=== PATIENT | male | born 1940 ===

== ENCOUNTER 2017-07-19 11:06 | Inpatient (IN) | payer OTHER ==
[~2017-07-19] VITALS: Ht 172.7 cm; Wt 77.1 kg
[~2017-07-19 11:06] MED LIST: ACET325 PO; ASPI325 PO; ASPI81CH PO; ATOR20 PO; BETA.1TL TP; CARB200 PO; CHOL10002 PO; CLOP75 PO; CODACE30 PO; DEPO-TESTOSTERONE SQ; DIAZ5 PO; DIGO.25 PO; Depo-Testos200 MG/ML IM; EYE VITAMIN-MI1 EACH PO; FISH1000 PO; GLUC500 PO; IBUP800; IPRA.06NI; ISOMON30 PO; LEVOTHYROXINE PO; METO25ER PO; METO50ER PO; OXYACE5T PO; Percocet 5-3251 EACH PO; RXLORA1 PO; SILD50TA PO; Synthroid25 MCG PO; TERB250 PO; WARF5 PO
[2017-07-19] MEDS ORDERED: TAMS.4ER PO (11:20)
[2017-07-19 13:44] LABS: BASOPHILS ABSOLUTE AUTO 0.02 K/mm3 (0.00-0.23); BASOPHILS PERCENT AUTO 0 % (0-2); EOSINOPHILS PERCENT AUTO 1 % (0-6); Hematocrit 48.9 % (37.0-53.0); Hemoglobin 16.9 g/dL (13.5-17.5); IMMATURE GRAN ABSOLUTE AUTO 0.04 K/mm3 (0.00-0.10); IMMATURE GRAN PERCENT AUTO 1 % (0-1); LYMPHOCYTES ABSOLUTE AUTO 2.32 K/mm3 (0.84-5.20); LYMPHOCYTES PERCENT AUTO 27 % (21-46); MONOCYTES ABSOLUTE AUTO 0.75 K/mm3 (0.16-1.47); MONOCYTES PERCENT AUTO 9 % (4-13); Mean Corpuscular HGB 33.4 pg (26.0-34.0); Mean Corpuscular HGB Conc 34.6 g/dL (31.5-36.5); Mean Corpuscular Volume 97 fL (80-100); NEUTROPHILS ABSOLUTE AUTO 5.28 K/mm3 (1.96-9.15); NEUTROPHILS PERCENT AUTO 62 % (41-73); Platelet Count 165 K/mm3 (150-400); RDW Coefficient Variation 13.1 % (11.7-14.2); RDW Standard Deviation 46.8 fL (35.1-46.3); Red Blood Cell Count 5.06 M/mm3 (4.30-5.90); White Blood Cell Count 8.51 K/mm3 (4.00-11.30)
[2017-07-19 13:55] LABS: Alanine Aminotransfer (ALT/SGP 41 U/L (12-78); Albumin, Blood 4.1 g/dL (3.4-5.0); Albumin/Globulin Ratio 1.2 (0.8-1.8); Alk Phos 104 U/L (50-136); Anion Gap 8 mmol/L (6-16); Aspartate Aminotrans (AST/SGOT 35 U/L (12-37); Bilirubin, Total 1.2 mg/dL (0.1-1.0); Blood Urea Nitrogen 12 mg/dL (8-24); Bun/Creatinine Ratio 16.5 (12.0-20.0); CO2, Blood 28 mmol/L (21-32); Calcium, Blood 9.1 mg/dL (8.5-10.1); Chloride, Blood 102 mmol/L (98-108); Creatinine, Blood 0.73 mg/dL (0.60-1.20); Globulin, Blood 3.3 g/dL (2.2-4.0); Glomerular Filtration Rate >60 (60-); Glucose, Blood 96 mg/dL (70-99); Potassium, Blood 3.6 mmol/L (3.5-5.5); Sodium, Blood 138 mmol/L (136-145); Total Protein, Blood 7.4 g/dL (6.4-8.2)
[2017-07-19 13:56] LABS: Troponin I <0.015 ng/mL (0.000-0.040)
[2017-07-20 05:24] LABS: BASOPHILS ABSOLUTE AUTO 0.01 K/mm3 (0.00-0.23); BASOPHILS PERCENT AUTO 0 % (0-2); EOSINOPHILS ABSOLUTE AUTO 0.01 K/mm3 (0.00-0.68); EOSINOPHILS PERCENT AUTO 0 % (0-6); Hematocrit 41.6 % (37.0-53.0); Hemoglobin 14.3 g/dL (13.5-17.5); IMMATURE GRAN ABSOLUTE AUTO 0.03 K/mm3 (0.00-0.10); IMMATURE GRAN PERCENT AUTO 0 % (0-1); LYMPHOCYTES ABSOLUTE AUTO 0.99 K/mm3 (0.84-5.20); LYMPHOCYTES PERCENT AUTO 11 % (21-46); MONOCYTES ABSOLUTE AUTO 0.79 K/mm3 (0.16-1.47); MONOCYTES PERCENT AUTO 9 % (4-13); Mean Corpuscular HGB 33.4 pg (26.0-34.0); Mean Corpuscular HGB Conc 34.4 g/dL (31.5-36.5); Mean Corpuscular Volume 97 fL (80-100); Mean Platelet Volume 9.8 fL (9.1-12.4); NEUTROPHILS PERCENT AUTO 80 % (41-73); Platelet Count 141 K/mm3 (150-400); RDW Coefficient Variation 12.9 % (11.7-14.2); Red Blood Cell Count 4.28 M/mm3 (4.30-5.90); White Blood Cell Count 9.23 K/mm3 (4.00-11.30)
[2017-07-20 05:35] LABS: International Normalized Ratio 2.8; Prothrombin Time Results 30.1 Sec (9.7-11.5)
[2017-07-20 06:04] LABS: Anion Gap 7 mmol/L (6-16); Blood Urea Nitrogen 13 mg/dL (8-24); Bun/Creatinine Ratio 17.9 (12.0-20.0); CO2, Blood 29 mmol/L (21-32); Calcium, Blood 8.6 mg/dL (8.5-10.1); Chloride, Blood 103 mmol/L (98-108); Creatinine, Blood 0.73 mg/dL (0.60-1.20); Glomerular Filtration Rate >60 (60-); Glucose, Blood 111 mg/dL (70-99); Potassium, Blood 4.3 mmol/L (3.5-5.5); Sodium, Blood 139 mmol/L (136-145)
[2017-07-20] MEDS ORDERED: OXYC5 PO (14:20)
[2017-10-17] MEDS ORDERED: ISOMON20 PO (02:19)
[2017-10-17] MEDS ORDERED: METO50ER PO (02:22)
[2017-10-17] MEDS ORDERED: LOSA25 PO (02:22)
[2017-10-17] MEDS ORDERED: SPIR25 PO (02:23)
[2017-10-17] MEDS ORDERED: TAMS.4ER PO (02:23)
[2017-10-17] MEDS ORDERED: TRAM50 PO (02:24)
[2017-10-17] MEDS ORDERED: TRAZ100 PO (02:24)
[2017-10-17] MEDS ORDERED: WARF2.5 PO (02:24)
[2017-10-17] MEDS ORDERED: Acetaminophen-1 EAC1 PO (02:25)
[2017-10-17] MEDS ORDERED: CLOP75 PO (02:26)
[2017-10-17] MEDS ORDERED: LANOXIN125 MCG PO (02:26)
[2017-10-17] MEDS ORDERED: ATOR80 PO (02:26)
[2017-10-19] MEDS ORDERED: WARF5 PO (09:24)
[2017-10-19] MEDS ORDERED: ACET325 PO (11:08)
[2017-10-19] MEDS ORDERED: FURO40 PO (11:09)
[2017-10-19] MEDS ORDERED: SPIR25 PO (11:09)
== END 2017-07-20 15:01 | disposition home health service (06) | DRG 536 ==
LOC: ER 11:06 → SURS 13:33
PROVIDERS: Internal Medicine
DX: S72.24XA Nondisplaced subtrochanteric fracture of right femur, initial encounter for closed fracture (principal); I48.2 Chronic atrial fibrillation; J44.9 Chronic obstructive pulmonary disease, unspecified; M97.01XA Periprosthetic fracture around internal prosthetic right hip joint, initial encounter; V09.00XA Pedestrian injured in nontraffic accident involving unspecified motor vehicles, initial encounter; I25.10 Atherosclerotic heart disease of native coronary artery without angina pectoris; I10 Essential (primary) hypertension; E78.5 Hyperlipidemia, unspecified; Z66 Do not resuscitate; Z95.5 Presence of coronary angioplasty implant and graft; Z96.643 Presence of artificial hip joint, bilateral; Z96.652 Presence of left artificial knee joint; Z86.010 Personal history of colon polyps; Z87.891 Personal history of nicotine dependence; Z79.899 Other long term (current) drug therapy; Z79.01 Long term (current) use of anticoagulants
CPT/HCPCS: 36415; 73502; 80048; 80053; 84484; 85025; 85610; 93005; 93010; 96374; 96375; 96376; 97110; 97116; 97162; 99285; G8978; G8979; J1170; J2405; J7030

== ENCOUNTER 2017-10-14 21:55 | Inpatient (IN) | payer OTHER ==
[~2017-10-14] VITALS: Ht 172.7 cm; Wt 79.2 kg
[~2017-10-14 21:55] MED LIST changes: +OXYC5 PO; +TAMS.4ER PO
[2017-10-14] MEDS ORDERED: TRAM50 PO (22:17)
[2017-10-14] MEDS ORDERED: TYLECOD3 PO (22:17)
[2017-10-14] MEDS ORDERED: TRAZ100 PO (22:18)
[2017-10-14 22:31] LABS: BASOPHILS ABSOLUTE AUTO 0.02 K/mm3 (0.00-0.23); BASOPHILS PERCENT AUTO 0 % (0-2); EOSINOPHILS ABSOLUTE AUTO 0.04 K/mm3 (0.00-0.68); EOSINOPHILS PERCENT AUTO 0 % (0-6); Hematocrit 41.8 % (37.0-53.0); Hemoglobin 14.1 g/dL (13.5-17.5); IMMATURE GRAN ABSOLUTE AUTO 0.04 K/mm3 (0.00-0.10); IMMATURE GRAN PERCENT AUTO 0 % (0-1); LYMPHOCYTES ABSOLUTE AUTO 2.11 K/mm3 (0.84-5.20); LYMPHOCYTES PERCENT AUTO 22 % (21-46); MONOCYTES ABSOLUTE AUTO 0.88 K/mm3 (0.16-1.47); MONOCYTES PERCENT AUTO 9 % (4-13); Mean Corpuscular HGB 33.3 pg (26.0-34.0); Mean Corpuscular HGB Conc 33.7 g/dL (31.5-36.5); Mean Corpuscular Volume 99 fL (80-100); Mean Platelet Volume 10.2 fL (9.1-12.4); NEUTROPHILS ABSOLUTE AUTO 6.46 K/mm3 (1.96-9.15); NEUTROPHILS PERCENT AUTO 68 % (41-73); Platelet Count 118 K/mm3 (150-400); RDW Coefficient Variation 13.3 % (11.7-14.2); RDW Standard Deviation 48.4 fL (35.1-46.3); Red Blood Cell Count 4.23 M/mm3 (4.30-5.90); White Blood Cell Count 9.55 K/mm3 (4.00-11.30)
[2017-10-14 22:44] LABS: International Normalized Ratio 2.98; Prothrombin Time Results 32.1 Sec (9.7-11.5)
[2017-10-14 22:46] LABS: Alanine Aminotransfer (ALT/SGP 40 U/L (12-78); Albumin, Blood 3.7 g/dL (3.4-5.0); Albumin/Globulin Ratio 1.2 (0.8-1.8); Alk Phos 117 U/L (50-136); Anion Gap 13 mmol/L (6-16); Aspartate Aminotrans (AST/SGOT 41 U/L (12-37); Bilirubin, Total 0.7 mg/dL (0.1-1.0); Blood Urea Nitrogen 14 mg/dL (8-24); Bun/Creatinine Ratio 14.6 (12.0-20.0); CO2, Blood 24 mmol/L (21-32); Calcium, Blood 8.8 mg/dL (8.5-10.1); Chloride, Blood 100 mmol/L (98-108); Creatinine, Blood 0.96 mg/dL (0.60-1.20); Glomerular Filtration Rate >60 (60-); Glucose, Blood 128 mg/dL (70-99); Potassium, Blood 3.9 mmol/L (3.5-5.5); Sodium, Blood 137 mmol/L (136-145); Total Protein, Blood 6.7 g/dL (6.4-8.2)
[2017-10-14 22:55] LABS: Digoxin (Lanoxin) 0.21 ug/mL (0.80-2.00)
[2017-10-15 06:33] LABS: Creatine Kinase MB 18.9 ng/mL (0.0-3.6); Creatine Kinase MB Index 10.3 (0.0-4.0)
[2017-10-15 06:42] LABS: Troponin I 2.8 ng/mL (0.000-0.040)
[2017-10-15 10:15] LABS: BASOPHILS ABSOLUTE AUTO 0.02 K/mm3 (0.00-0.23); BASOPHILS PERCENT AUTO 0 % (0-2); EOSINOPHILS ABSOLUTE AUTO 0.02 K/mm3 (0.00-0.68); EOSINOPHILS PERCENT AUTO 0 % (0-6); Hematocrit 42.8 % (37.0-53.0); Hemoglobin 14.6 g/dL (13.5-17.5); IMMATURE GRAN ABSOLUTE AUTO 0.03 K/mm3 (0.00-0.10); IMMATURE GRAN PERCENT AUTO 0 % (0-1); LYMPHOCYTES ABSOLUTE AUTO 1.08 K/mm3 (0.84-5.20); LYMPHOCYTES PERCENT AUTO 12 % (21-46); MONOCYTES ABSOLUTE AUTO 0.82 K/mm3 (0.16-1.47); MONOCYTES PERCENT AUTO 9 % (4-13); Mean Corpuscular HGB 33.2 pg (26.0-34.0); Mean Corpuscular HGB Conc 34.1 g/dL (31.5-36.5); Mean Corpuscular Volume 97 fL (80-100); Mean Platelet Volume 10.2 fL (9.1-12.4); NEUTROPHILS ABSOLUTE AUTO 6.91 K/mm3 (1.96-9.15); NEUTROPHILS PERCENT AUTO 78 % (41-73); Platelet Count 120 K/mm3 (150-400); RDW Coefficient Variation 13.4 % (11.7-14.2); White Blood Cell Count 8.88 K/mm3 (4.00-11.30)
[2017-10-15 10:24] LABS: International Normalized Ratio 3.21; Prothrombin Time Results 34.6 Sec (9.7-11.5)
[2017-10-15 10:42] LABS: Alanine Aminotransfer (ALT/SGP 39 U/L (12-78); Albumin, Blood 3.8 g/dL (3.4-5.0); Albumin/Globulin Ratio 1.2 (0.8-1.8); Alk Phos 118 U/L (50-136); Anion Gap 9 mmol/L (6-16); Aspartate Aminotrans (AST/SGOT 49 U/L (12-37); Blood Urea Nitrogen 16 mg/dL (8-24); Bun/Creatinine Ratio 21.5 (12.0-20.0); CO2, Blood 27 mmol/L (21-32); Chloride, Blood 99 mmol/L (98-108); Creatinine, Blood 0.74 mg/dL (0.60-1.20); Globulin, Blood 3.2 g/dL (2.2-4.0); Glomerular Filtration Rate >60 (60-); Glucose, Blood 112 mg/dL (70-99); Potassium, Blood 4.2 mmol/L (3.5-5.5); Sodium, Blood 135 mmol/L (136-145)
[2017-10-15 15:04] LABS: International Normalized Ratio 2.08
[2017-10-15 15:05] LABS: Creatine Kinase MB 19.5 ng/mL (0.0-3.6); Creatine Kinase MB Index 9.4 (0.0-4.0)
[2017-10-15 15:11] LABS: Prothrombin Time Results 22.1 Sec (9.7-11.5)
[2017-10-15 15:14] LABS: Troponin I 3.31 ng/mL (0.000-0.040)
[2017-10-16] MEDS ORDERED: ASPI81CH PO (13:45)
[2017-10-16] MEDS ORDERED: LANOXIN125 MCG PO (13:48)
[2017-10-16] MEDS ORDERED: LOSA25 PO (13:48)
[2017-10-16] MEDS ORDERED: SPIR25 PO (13:49)
[2017-10-16] MEDS ORDERED: ISOMON20 PO (13:50)
[2017-10-16] MEDS ORDERED: CLOP75 PO (14:07)
== END 2017-10-16 15:37 | disposition home or self-care (01) | DRG 282 ==
LOC: ER 21:55 → PCU 21:56 → ER 21:56 → PCU 10-15 00:50
PROVIDERS: Emergency Medicine; Internal Medicine; Internal Medicine Cardiovascular Disease
PROC: 4A023N7 Measurement of Cardiac Sampling and Pressure, Left Heart, Percutaneous Approach (ICD-10-PCS; principal; 2017-10-15)
PROC: B2111ZZ Fluoroscopy of Multiple Coronary Arteries using Low Osmolar Contrast (ICD-10-PCS; 2017-10-15)
PROC: 30233K1 Transfusion of Nonautologous Frozen Plasma into Peripheral Vein, Percutaneous Approach (ICD-10-PCS; 2017-10-15)
DX: I21.4 Non-ST elevation (NSTEMI) myocardial infarction (principal); I25.5 Ischemic cardiomyopathy; I25.2 Old myocardial infarction; I48.2 Chronic atrial fibrillation; I25.10 Atherosclerotic heart disease of native coronary artery without angina pectoris; E78.5 Hyperlipidemia, unspecified; I10 Essential (primary) hypertension; J44.9 Chronic obstructive pulmonary disease, unspecified; E11.9 Type 2 diabetes mellitus without complications; R79.1 Abnormal coagulation profile; I35.2 Nonrheumatic aortic (valve) stenosis with insufficiency
CPT/HCPCS: 36415; 36430; 71046; 80053; 80162; 82550; 82553; 83880; 84484; 85025; 85610; 85730; 86850; 86900; 86901; 93005; 93010; 93306; 93458; 99152; 99153; 99285; C1769; C1894; J1644; J2250; J3010; J7030; P9059; Q9967

== ENCOUNTER 2018-02-21 12:25 | Inpatient (IN) | payer OTHER ==
[~2018-02-21] VITALS: Ht 172.7 cm; Wt 72.5 kg
[~2018-02-21 12:25] MED LIST changes: -LORA.5 PO; -POTA10T PO
[2018-02-21] MEDS ORDERED: LORA.5 PO (13:40)
[2018-02-21 20:52] LABS: Percent Saturation 18.8 % (20.0-50.0)
[2018-02-22 02:12] LABS: BASOPHILS ABSOLUTE AUTO 0.01 K/mm3 (0.00-0.23); BASOPHILS PERCENT AUTO 0 % (0-2); EOSINOPHILS ABSOLUTE AUTO 0.13 K/mm3 (0.00-0.68); EOSINOPHILS PERCENT AUTO 2 % (0-6); Hematocrit 33.2 % (37.0-53.0); Hemoglobin 11.6 g/dL (13.5-17.5); IMMATURE GRAN ABSOLUTE AUTO 0.05 K/mm3 (0.00-0.10); IMMATURE GRAN PERCENT AUTO 1 % (0-1); LYMPHOCYTES ABSOLUTE AUTO 1.76 K/mm3 (0.84-5.20); LYMPHOCYTES PERCENT AUTO 24 % (21-46); MONOCYTES ABSOLUTE AUTO 0.65 K/mm3 (0.16-1.47); MONOCYTES PERCENT AUTO 9 % (4-13); Mean Corpuscular HGB 33.8 pg (26.0-34.0); Mean Corpuscular HGB Conc 34.9 g/dL (31.5-36.5); Mean Platelet Volume 9.6 fL (9.1-12.4); NEUTROPHILS PERCENT AUTO 64 % (41-73); Platelet Count 188 K/mm3 (150-400); RDW Coefficient Variation 12.3 % (11.7-14.2); RDW Standard Deviation 43.6 fL (35.1-46.3); Red Blood Cell Count 3.43 M/mm3 (4.30-5.90)
[2018-02-22 02:16] LABS: Mean Corpuscular Volume 97 fL (80-100)
[2018-02-22 02:26] LABS: International Normalized Ratio 1.46; Prothrombin Time Results 14.7 Sec (9.7-11.5)
[2018-02-22 02:36] LABS: Alanine Aminotransfer (ALT/SGP 61 U/L (12-78); Albumin, Blood 3.4 g/dL (3.4-5.0); Albumin/Globulin Ratio 1.1 (0.8-1.8); Alk Phos 121 U/L (50-136); Anion Gap 8 mmol/L (6-16); Aspartate Aminotrans (AST/SGOT 60 U/L (12-37); Bilirubin, Total 1.2 mg/dL (0.1-1.0); Blood Urea Nitrogen 23 mg/dL (8-24); Bun/Creatinine Ratio 25.4 (12.0-20.0); CO2, Blood 29 mmol/L (21-32); Calcium, Blood 8.6 mg/dL (8.5-10.1); Chloride, Blood 93 mmol/L (98-108); Creatinine, Blood 0.91 mg/dL (0.60-1.20); Globulin, Blood 3.1 g/dL (2.2-4.0); Glomerular Filtration Rate >60 (60-); Glucose, Blood 90 mg/dL (70-99); Magnesium, Blood 2.4 mg/dL (1.6-2.4); Phosphorus, Blood 3.2 mg/dL (2.5-4.9); Potassium, Blood 3.8 mmol/L (3.5-5.5); Sodium, Blood 130 mmol/L (136-145); Total Protein, Blood 6.5 g/dL (6.4-8.2)
[2018-02-23 05:00] LABS: BASOPHILS ABSOLUTE AUTO 0.02 K/mm3 (0.00-0.23); BASOPHILS PERCENT AUTO 0 % (0-2); EOSINOPHILS ABSOLUTE AUTO 0.14 K/mm3 (0.00-0.68); EOSINOPHILS PERCENT AUTO 2 % (0-6); Hematocrit 31.2 % (37.0-53.0); Hemoglobin 10.5 g/dL (13.5-17.5); IMMATURE GRAN ABSOLUTE AUTO 0.05 K/mm3 (0.00-0.10); IMMATURE GRAN PERCENT AUTO 1 % (0-1); LYMPHOCYTES ABSOLUTE AUTO 1.25 K/mm3 (0.84-5.20); LYMPHOCYTES PERCENT AUTO 19 % (21-46); MONOCYTES ABSOLUTE AUTO 0.64 K/mm3 (0.16-1.47); MONOCYTES PERCENT AUTO 10 % (4-13); Mean Corpuscular HGB 32.6 pg (26.0-34.0); Mean Corpuscular HGB Conc 33.7 g/dL (31.5-36.5); Mean Corpuscular Volume 97 fL (80-100); Mean Platelet Volume 9.7 fL (9.1-12.4); NEUTROPHILS ABSOLUTE AUTO 4.48 K/mm3 (1.96-9.15); NEUTROPHILS PERCENT AUTO 68 % (41-73); Platelet Count 189 K/mm3 (150-400); RDW Coefficient Variation 12.6 % (11.7-14.2); RDW Standard Deviation 44.7 fL (35.1-46.3); Red Blood Cell Count 3.22 M/mm3 (4.30-5.90); White Blood Cell Count 6.58 K/mm3 (4.00-11.30)
[2018-02-23 05:14] LABS: International Normalized Ratio 2.03; Prothrombin Time Results 20.1 Sec (9.7-11.5)
[2018-02-23 05:22] LABS: Anion Gap 7 mmol/L (6-16); Blood Urea Nitrogen 21 mg/dL (8-24); Bun/Creatinine Ratio 23.1 (12.0-20.0); CO2, Blood 32 mmol/L (21-32); Calcium, Blood 8.2 mg/dL (8.5-10.1); Chloride, Blood 97 mmol/L (98-108); Creatinine, Blood 0.91 mg/dL (0.60-1.20); Glomerular Filtration Rate >60 (60-); Glucose, Blood 84 mg/dL (70-99); Potassium, Blood 3.6 mmol/L (3.5-5.5); Sodium, Blood 136 mmol/L (136-145)
[2018-02-23] MEDS ORDERED: SPIR25 PO (09:48)
[2018-02-23] MEDS ORDERED: POTA10T PO (09:49)
== END 2018-02-23 11:45 | disposition home or self-care (01) | DRG 292 ==
LOC: ER 12:25 → MEDS 12:26 → ENPENDDIS 02-23 09:37 → MEDS 02-23 11:45
PROVIDERS: Hospitalist; Pharmacist
DX: I50.23 Acute on chronic systolic (congestive) heart failure (principal); E87.1 Hypo-osmolality and hyponatremia; I48.2 Chronic atrial fibrillation; I34.0 Nonrheumatic mitral (valve) insufficiency; I25.10 Atherosclerotic heart disease of native coronary artery without angina pectoris; D64.9 Anemia, unspecified; M51.36 Other intervertebral disc degeneration, lumbar region; E78.5 Hyperlipidemia, unspecified; M19.90 Unspecified osteoarthritis, unspecified site; I25.2 Old myocardial infarction; Z95.5 Presence of coronary angioplasty implant and graft; Z88.8 Allergy status to other drugs, medicaments and biological substances; Z79.01 Long term (current) use of anticoagulants; Z79.02 Long term (current) use of antithrombotics/antiplatelets; Z79.899 Other long term (current) drug therapy; Z87.891 Personal history of nicotine dependence
CPT/HCPCS: 36415; 80048; 80053; 82728; 83540; 83550; 83735; 83880; 84100; 84484; 85025; 85610; 93005; 93010; 96374; 96375; 97161; 97165; 97535; 99285-25; G8978; G8979; G8980; G8987; G8988; G8989; J1940; J2405

== ENCOUNTER → 2018-02-21 | Outpatient (CLI) | payer OTHER ==
[~2018-02-21] MED LIST changes: +ATOR80 PO; +Acetaminophen-1 EAC1 PO; +FURO40 PO; +ISOMON20 PO; +LANOXIN125 MCG PO; +LORA.5 PO; +LOSA25 PO; +POTA10T PO; +SPIR25 PO; +TRAM50 PO; +TRAZ100 PO; +TYLECOD3 PO; +WARF2.5 PO
[2018-02-21 11:15] LABS: BASOPHILS ABSOLUTE AUTO 0.01 K/mm3 (0.00-0.23); BASOPHILS PERCENT AUTO 0 % (0-2); EOSINOPHILS ABSOLUTE AUTO 0.03 K/mm3 (0.00-0.68); EOSINOPHILS PERCENT AUTO 0 % (0-6); Hematocrit 31.1 % (37.0-53.0); Hemoglobin 11.3 g/dL (13.5-17.5); IMMATURE GRAN ABSOLUTE AUTO 0.06 K/mm3 (0.00-0.10); IMMATURE GRAN PERCENT AUTO 1 % (0-1); LYMPHOCYTES ABSOLUTE AUTO 0.76 K/mm3 (0.84-5.20); LYMPHOCYTES PERCENT AUTO 8 % (21-46); MONOCYTES ABSOLUTE AUTO 0.89 K/mm3 (0.16-1.47); MONOCYTES PERCENT AUTO 9 % (4-13); Mean Corpuscular HGB 34.2 pg (26.0-34.0); Mean Corpuscular HGB Conc 36.3 g/dL (31.5-36.5); Mean Corpuscular Volume 94 fL (80-100); Mean Platelet Volume 10.1 fL (9.1-12.4); NEUTROPHILS ABSOLUTE AUTO 8.13 K/mm3 (1.96-9.15); NEUTROPHILS PERCENT AUTO 82 % (41-73); Platelet Count 195 K/mm3 (150-400); RDW Coefficient Variation 12.2 % (11.7-14.2); RDW Standard Deviation 42.2 fL (35.1-46.3); White Blood Cell Count 9.88 K/mm3 (4.00-11.30)
[2018-02-21 11:40] LABS: Anion Gap 8 mmol/L (6-16); Blood Urea Nitrogen 23 mg/dL (8-24); Bun/Creatinine Ratio 23.2 (12.0-20.0); CO2, Blood 28 mmol/L (21-32); Calcium, Blood 9.1 mg/dL (8.5-10.1); Chloride, Blood 90 mmol/L (98-108); Creatinine, Blood 0.99 mg/dL (0.60-1.20); Glomerular Filtration Rate >60 (60-); Glucose, Blood 123 mg/dL (70-99); Potassium, Blood 4.2 mmol/L (3.5-5.5); Sodium, Blood 126 mmol/L (136-145)
[2018-02-21 11:41] LABS: Troponin I 1.532 ng/mL (0.000-0.040)
== END | disposition home or self-care (01) ==
LOC: LAB EV 11:10 → LAB SHORT 11:10
PROVIDERS: Family Medicine
DX: I48.91 Unspecified atrial fibrillation (principal)
CPT/HCPCS: 80048; 83880; 84484; 85025

== ENCOUNTER 2019-10-20 14:07 | Inpatient (IN) | payer OTHER ==
[~2019-10-20] VITALS: Ht 172.7 cm; Wt 70.0 kg
[~2019-10-20 14:07] MED LIST changes: -ATOR80 PO; +LORA.5 PO; +POTA10T PO
[2019-10-20 15:52] LABS: BASOPHILS ABSOLUTE AUTO 0.03 K/mm3 (0.00-0.23); BASOPHILS PERCENT AUTO 0 % (0-2); EOSINOPHILS ABSOLUTE AUTO 0.09 K/mm3 (0.00-0.68); EOSINOPHILS PERCENT AUTO 1 % (0-6); Hematocrit 40.3 % (37.0-53.0); Hemoglobin 13.6 g/dL (13.5-17.5); IMMATURE GRAN ABSOLUTE AUTO 0.03 K/mm3 (0.00-0.10); IMMATURE GRAN PERCENT AUTO 0 % (0-1); LYMPHOCYTES ABSOLUTE AUTO 1.49 K/mm3 (0.84-5.20); LYMPHOCYTES PERCENT AUTO 19 % (21-46); MONOCYTES ABSOLUTE AUTO 0.78 K/mm3 (0.16-1.47); MONOCYTES PERCENT AUTO 10 % (4-13); Mean Corpuscular HGB 33.2 pg (26.0-34.0); Mean Corpuscular HGB Conc 33.7 g/dL (31.5-36.5); Mean Corpuscular Volume 98 fL (80-100); Mean Platelet Volume 10.3 fL (9.1-12.4); NEUTROPHILS PERCENT AUTO 69 % (41-73); Platelet Count 135 K/mm3 (150-400); RDW Coefficient Variation 13.7 % (11.7-14.2); RDW Standard Deviation 49.7 fL (35.1-46.3); White Blood Cell Count 7.72 K/mm3 (4.00-11.30)
[2019-10-20 16:13] LABS: Alanine Aminotransfer (ALT/SGP 39 U/L (12-78); Albumin, Blood 3.9 g/dL (3.4-5.0); Albumin/Globulin Ratio 1.2 (0.8-1.8); Alk Phos 162 U/L (50-136); Anion Gap 7 mmol/L (6-16); Aspartate Aminotrans (AST/SGOT 46 U/L (12-37); Bilirubin, Total 1.2 mg/dL (0.1-1.0); Blood Urea Nitrogen 24 mg/dL (8-24); Bun/Creatinine Ratio 28.5 (12.0-20.0); CO2, Blood 30 mmol/L (21-32); Calcium, Blood 9.2 mg/dL (8.5-10.1); Chloride, Blood 98 mmol/L (98-108); Creatinine, Blood 0.84 mg/dL (0.60-1.20); Globulin, Blood 3.3 g/dL (2.2-4.0); Glomerular Filtration Rate >60 (60-); Glucose, Blood 69 mg/dL (70-99); Potassium, Blood 3.6 mmol/L (3.5-5.5); Sodium, Blood 135 mmol/L (136-145); Total Protein, Blood 7.2 g/dL (6.4-8.2); Troponin I 0.072 ng/mL (0.000-0.040)
[2019-10-20] MEDS ORDERED: TORSE20 PO (17:14)
[2019-10-20] MEDS ORDERED: GABA300 PO (17:16)
[2019-10-20] MEDS ORDERED: ELIQUIS5 MG PO (17:16)
[2019-10-20] MEDS ORDERED: DIGOX125 MC1 PO (18:51)
--- NOTE | 2019-10-20 22:30 | NUR ---
PCU ADMIT PT BROUGHT TO PCU-06 BY NICHELLEALEXSANDRA FROM ER @ APPROX 2145. PT A&O X4, ABLE TO STAND AND INDEPENDENTLY AMBULATE FROM [facility] TO PCU BED. PT HAS PERSONAL CANE W/ HIM THAT HE REPORTS OCCASSIONALLY USING. PT VSS. MONITOR SHOWS AFIB W/ BBB, HR 90's. LUNG SOUNDS CLEAR W/ SPO2 > 92% ON RA. PT REPORTS SOB W/ ACTIVITY & LAYING DOWN. RLE W/ PITTING EDEMEA FROM R FOOT UP TO THIGH. LLE W/ +2 EDEMA. PT REPORTS TAKING DIURETIC AT HOME W/ LITTLE HELP. PT POTASSIUM LEVEL ON LOW SIDE OF NORMAL. MD ORDER FOR PO K SUPPLEMENTATION W/ PT REFUSING, STATING "I'VE BEEN OVER THIS BEFORE. I DO NOT TAKE POTASSIUM. I EAT BANANAS, AND I DO NOT TAKE POTASSIUM." PT EDUCATED ON POTASSIUM NEEDS WHILE ON DIURETICS AND POTENTIAL FURTHER DECLINE IN K LEVEL. PT INFORMS THAT HE IS AWARE AND DECLINES POTASSIUM SUPPLEMENTATION OR FURTHER EDUCATION AT THIS TIME. PT ALSO DECLINING BANANA. PT VERY PARTICULAR W/ NEEDS & CARE & IS VERY IRRITABLE W/ LEGAL ADMINISTRATOR, HOSPITAL GOWN, UNCOMFORTABLE BED, PILLS BEING TOO BIG OR TOO SLICK OR TOO STICKY OR WATER TOO COLD. APPLESAUCE AND ROOM TEMP WATER PROVIDED TO PT FOR MEDICATIONS FOR PT PREFERENCE. WILL CONTINUE TO MONITOR AND PROVIDE CARE.
[2019-10-21 04:20] LABS: Hemoglobin 11.8 g/dL (13.5-17.5)
[2019-10-21 04:41] LABS: Anion Gap 6 mmol/L (6-16); Blood Urea Nitrogen 20 mg/dL (8-24); Bun/Creatinine Ratio 24.3 (12.0-20.0); CO2, Blood 33 mmol/L (21-32); Calcium, Blood 8.8 mg/dL (8.5-10.1); Chloride, Blood 100 mmol/L (98-108); Creatinine, Blood 0.82 mg/dL (0.60-1.20); Glomerular Filtration Rate >60 (60-); Glucose, Blood 96 mg/dL (70-99); Magnesium, Blood 2.2 mg/dL (1.6-2.4); Potassium, Blood 3.3 mmol/L (3.5-5.5); Sodium, Blood 139 mmol/L (136-145); Troponin I 0.079 ng/mL (0.000-0.040)
[2019-10-21 04:48] LABS: Digoxin (Lanoxin) 0.57 ug/mL (0.80-2.00)
--- NOTE | 2019-10-21 06:25 | NUR ---
SHIFT SUMMARY PT CONTINUES TO BE A&O X4. VSS. MONITOR SHOWING AFIB W/ BBB, HR 60's-90's. LUNG SOUNDS CLEAR W/ SPO2 > 92% ON RA. BLE EDEMA NOTED. PT SLEEPING T/O MAJORITY OF SHIFT. WILL CONTINUE TO MONITOR AND PROVIDE CARE UNTIL REPORT OFF TO DAY SHIFT RN.
--- NOTE | 2019-10-21 16:35 | NUR ---
SHIFT SUMMARY PT REPORTS FEELING BETTER TODAY. BLE WITH PITTING EDEMA AND ARE ACTIVELY WEEPING. KNEE HIGH GITA HOSE IN PLACE. PT REPORTS EDEMA IMPROVED SINCE YESTERDAY. PT DENIES CP AND DENIES SOB. HAS BEEN INDEP IN ROOM. PLAN IS TO CONTINUE DIURESING, REPEAT LABS IN AM, REPEAT ECHOCARDIOGRAM, AND STRICT I/Os. PT USES CALL LIGHT APPROPRIATELY.
--- NOTE | 2019-10-21 17:17 | NUR ---
NOTIFED DR. WEISS OF LOW BP AND DIZZYNESS. HOLD LASIX DOSE IF SBP <100. DR. MOROCHO VERBALIZED TO HAVE PT REST IN BED UNTIL SYMPTOMS SUBSIDE.
[2019-10-22 03:47] LABS: BASOPHILS ABSOLUTE AUTO 0.02 K/mm3 (0.00-0.23); BASOPHILS PERCENT AUTO 0 % (0-2); EOSINOPHILS ABSOLUTE AUTO 0.04 K/mm3 (0.00-0.68); EOSINOPHILS PERCENT AUTO 1 % (0-6); Hematocrit 37.4 % (37.0-53.0); Hemoglobin 12.2 g/dL (13.5-17.5); IMMATURE GRAN ABSOLUTE AUTO 0.02 K/mm3 (0.00-0.10); IMMATURE GRAN PERCENT AUTO 0 % (0-1); LYMPHOCYTES ABSOLUTE AUTO 1.46 K/mm3 (0.84-5.20); LYMPHOCYTES PERCENT AUTO 23 % (21-46); MONOCYTES ABSOLUTE AUTO 0.65 K/mm3 (0.16-1.47); MONOCYTES PERCENT AUTO 10 % (4-13); Mean Corpuscular HGB 32.4 pg (26.0-34.0); Mean Corpuscular HGB Conc 32.6 g/dL (31.5-36.5); Mean Corpuscular Volume 100 fL (80-100); Mean Platelet Volume 10.4 fL (9.1-12.4); NEUTROPHILS ABSOLUTE AUTO 4.29 K/mm3 (1.96-9.15); NEUTROPHILS PERCENT AUTO 66 % (41-73); Platelet Count 122 K/mm3 (150-400); RDW Coefficient Variation 13.8 % (11.7-14.2); RDW Standard Deviation 50.4 fL (35.1-46.3); Red Blood Cell Count 3.76 M/mm3 (4.30-5.90); White Blood Cell Count 6.48 K/mm3 (4.00-11.30)
[2019-10-22 04:09] LABS: Alanine Aminotransfer (ALT/SGP 31 U/L (12-78); Albumin, Blood 3.5 g/dL (3.4-5.0); Albumin/Globulin Ratio 1.2 (0.8-1.8); Alk Phos 142 U/L (50-136); Anion Gap 5 mmol/L (6-16); Aspartate Aminotrans (AST/SGOT 48 U/L (12-37); Bilirubin, Total 1.5 mg/dL (0.1-1.0); Blood Urea Nitrogen 22 mg/dL (8-24); Bun/Creatinine Ratio 24.6 (12.0-20.0); CO2, Blood 33 mmol/L (21-32); Chloride, Blood 98 mmol/L (98-108); Glomerular Filtration Rate >60 (60-); Glucose, Blood 105 mg/dL (70-99); Magnesium, Blood 2.3 mg/dL (1.6-2.4); Potassium, Blood 4.2 mmol/L (3.5-5.5); Sodium, Blood 136 mmol/L (136-145); Total Protein, Blood 6.5 g/dL (6.4-8.2)
--- NOTE | 2019-10-22 05:16 | NUR ---
CRITICAL TROPONIN CALL TO MD CARDENAS TO REPORT CRITICAL TROPONIN OF 3.320 THIS AM. PT DENIES CP & NO CHANGES NOTED. W/ ORDERS TO DC ELIQUIS & START PT ON HEPARIN GTT & PO ASA, & CONSULT CARDIOLOGY.
[2019-10-22 06:14] LABS: International Normalized Ratio 1.29; Prothrombin Time Results 13.6 Sec (9.7-11.5)
--- NOTE | 2019-10-22 06:27 | NUR ---
SHIFT SUMMARY PT A&O X4. VSS. PT REPORTS EPISODES OF DIZZINESS W/ GETTING UP. EVENING METOPROLOL DOSE HELD FOR LOW BP AND PT REPORT OF DIZZINESS W/ GETTING UP. PT REPORTS FEELING WEAKER THAN HE'S EVER FELT BEFORE. MONITOR SHOWS AFIB, HR 60's-90's. BLE EDEMA W/ PT REPORT OF IMPROVEMENT. R LEG NOTED TO BE MORE EDEMATOUS THAN L LEG. CRITICAL TROPONIN OF 3.32 CALLED TO MD CARDENAS THIS SHIFT W/ NEW ORDERS, SEE PREVIOUS NOTE. HEPARIN GTT INITIATED & INFUSING PER ORDERS. WILL CONTINUE TO MONITOR & PROVIDE CARE UNTIL REPORT OFF TO DAY SHIFT RN.
--- NOTE | 2019-10-22 13:46 | NUR ---
Echocardiogram with Definity completed by Yuliana Beebe.
--- NOTE | 2019-10-22 17:28 | NUR ---
EVENING NOTE PT AWAKE AND ALERT. AFIB. RATE 80'S. SBP THIS EVENING 98. PT UP SBA WITH A CANE. NO DIZZINESS OR CHEST PAIN. HEPARIN GTT INFUSING. NPO AFTER MIDNIGHT FOR ANGIOGRAM IN MORNING. CONTINUE POT.
--- NOTE | 2019-10-22 20:48 | NUR ---
ASSUMED CARE OF PATIENT AT [facility] FROM ALICE Wells RN. PATIENT ALERT AND ORIENTED X4; ANXIOUS. PATIENT REPORTS HE HAS BEEN HAVING MULTIPLE BM'S AND IS HAVING PAIN IN HIS ARMS AND BACK THAT IS CHRONIC; REPORTS BULDGING DISCS IN BACK; PAIN CAN SPIKE WITH MOVEMENT. PATIENT DENIES NUMBNESS, TINGLING, DIZZINESS OR NAUSEA. PATIENT IRRITABLE AT TIMES. AFIB ON TELE W/ A RATE OF 90'S; OXYGEN SATURATION ABOVE 90% ON ROOM AIR. PATIENT APPEARED SOB BUT DENIED IT UPON RETURNING TO BATHROOM; RECOVERED WITHIN A FEW MINUTES. DOSE ADJUSTED HEPARIN GTT; NPO AT MIDNIGHT FOR ANGIO IN AM. PATIENT ONE ASSIST OUT OF BED W/ CANE. PATIENT CURRENLTY RESTING IN BED; CALL LIGHT IN REACH; BED IN LOWEST POSISTION; BED ALARM ON; WILL CONTINUE TO MONITOR AND ASSESS UNTIL END OF SHIFT.
[2019-10-23 00:22] LABS: BASOPHILS ABSOLUTE AUTO 0.02 K/mm3 (0.00-0.23); BASOPHILS PERCENT AUTO 0 % (0-2); EOSINOPHILS ABSOLUTE AUTO 0.07 K/mm3 (0.00-0.68); EOSINOPHILS PERCENT AUTO 1 % (0-6); Hematocrit 37.5 % (37.0-53.0); Hemoglobin 12.6 g/dL (13.5-17.5); IMMATURE GRAN ABSOLUTE AUTO 0.03 K/mm3 (0.00-0.10); IMMATURE GRAN PERCENT AUTO 0 % (0-1); LYMPHOCYTES ABSOLUTE AUTO 1.23 K/mm3 (0.84-5.20); LYMPHOCYTES PERCENT AUTO 18 % (21-46); MONOCYTES ABSOLUTE AUTO 0.64 K/mm3 (0.16-1.47); MONOCYTES PERCENT AUTO 10 % (4-13); Mean Corpuscular HGB 33.3 pg (26.0-34.0); Mean Corpuscular HGB Conc 33.6 g/dL (31.5-36.5); Mean Corpuscular Volume 99 fL (80-100); Mean Platelet Volume 9.9 fL (9.1-12.4); NEUTROPHILS ABSOLUTE AUTO 4.72 K/mm3 (1.96-9.15); NEUTROPHILS PERCENT AUTO 71 % (41-73); Platelet Count 126 K/mm3 (150-400); RDW Coefficient Variation 13.6 % (11.7-14.2); RDW Standard Deviation 50.2 fL (35.1-46.3); Red Blood Cell Count 3.78 M/mm3 (4.30-5.90); White Blood Cell Count 6.71 K/mm3 (4.00-11.30)
[2019-10-23 00:34] LABS: International Normalized Ratio 1.33
[2019-10-23 00:45] LABS: Alanine Aminotransfer (ALT/SGP 30 U/L (12-78); Albumin, Blood 3.4 g/dL (3.4-5.0); Albumin/Globulin Ratio 1.2 (0.8-1.8); Alk Phos 143 U/L (50-136); Anion Gap 7 mmol/L (6-16); Aspartate Aminotrans (AST/SGOT 51 U/L (12-37); Bilirubin, Total 1.6 mg/dL (0.1-1.0); Blood Urea Nitrogen 22 mg/dL (8-24); CO2, Blood 31 mmol/L (21-32); Chloride, Blood 97 mmol/L (98-108); Creatinine, Blood 0.88 mg/dL (0.60-1.20); Globulin, Blood 2.9 g/dL (2.2-4.0); Glomerular Filtration Rate >60 (60-); Glucose, Blood 102 mg/dL (70-99); Potassium, Blood 3.6 mmol/L (3.5-5.5); Sodium, Blood 135 mmol/L (136-145); Total Protein, Blood 6.3 g/dL (6.4-8.2)
--- NOTE | 2019-10-23 05:56 | NUR ---
NO ACUTE CHANGES TO REPORT. PATIENT SLEPT ABOUT EIGHT HOURS LAST NIGHT. NPO FOR ANGIOGRAM TODAY; HEPARIN ADJUSTED ANOTHER TIME DUE TO CRITICALLY HIGH APTT. VSS. WILL CONTINUE TO MONITOR AND ASSESS UNTIL END OF SHIFT.
--- NOTE | 2019-10-23 09:33 | NUR ---
S/P ANGIOGRAM PT RETURNED FROM [facility] VIA BED ACCOMPANIED BY [id number]. PT ALERT AND ORIENTED. QUESTIONING STAFF ABOUT THE TAVR PROCEDURE. DR HAYNES HERE. PLANNING TRANSFER TO [facility]. CLARIFIED WITH PT ABOUT ACTIVITY LIMITS AND SITE CARE. PILLOW PLACED UNDER RIGTH ELBOW. PT REPLIED "CAN I SLAP YOU IN THE BUTT WITH IT!" CLARIFIED AGAIN THE SITE CARE AND REST. SPO2 PROBE PLACED RIGHT MIDDLE FINGER. PT HAS A BANDAIDE ON HIS INDEX FINGER. BP STABLE. CONTINUE POT.
[2019-10-23] MEDS ORDERED: ATOR80 PO (10:54)
[2019-10-23] MEDS ORDERED: METO25 PO (10:55)
[2019-10-23] MEDS ORDERED: FURO40 PO (10:56)
[2019-10-23] MEDS ORDERED: Aspir 8181 MG PO (10:57)
[2019-10-23] MEDS ORDERED: POTA20LUD PO (10:57)
--- NOTE | 2019-10-23 11:24 | NUR ---
TR BAND REMOVAL-BLEED ASSESSED RIGHT RADIAL SITE FOR BLEEDING PER ORDER. NO SWEELING OR HEMATOMA NOTED. STARTED TO REMOVE AIR FROM CUFF 1ML X1. PT IMMEDIATELY STARTED TO BLEED. THE LEAKAGE HAD A PULSE LIKE PATTERN. RE INSTALLED 1ML OF AIR TO CUFF. LEAKAGE STOPPED. SPOS PHLETH TO FINGERS STABLE. SAT 97%. TALKED WIT THE PT ABOUT ATTEMPTING AGAIN IN ABOUT AN HOUR. PT WAS NOTED YESTERDAY TO BLEED EASILY. CONTINUE POT.
--- NOTE | 2019-10-23 11:46 | NUR ---
POST BLEED RIGHT RADIAL SITE CD&I. NO SWELLING OR LEAKAGE NOTED. CMS WNL TO RIGHT FINGERS. CONTINUE POT.
--- NOTE | 2019-10-23 13:37 | NUR ---
DEFLATE TR BAND STARTED REMOVING AIR FROM TR BAND( ATTEMPT #2) AT 1320. AFTER PT HAD SAT UP AND ATE LUNCH WITH HIS LEFT HAND. REMOVED 1ML X5. NO BLEEDING OR SWELLING NOTED. CONTINUE POT
--- NOTE | 2019-10-23 16:16 | NUR ---
DISCHARGE HOME PT DISCHARGE INSTRUCTIONS READ TO PT. COVERED THE TR BAND RECOVERY INSTRUCTIONS, NEW MEDICATIONS AND F/U CARE REQUESTS. PT STATED THAT HE REFUSES TO TAKE LIPITOR 80 MG DAILY. HE WILL TAKE 40MG AND THAT "IS GOOD ENOUGH". PT HELPED TO GET DRESSED. PT ABLE TO WALK AND STAND AT BASELINE WITH CANE. RIGHT RADIAL SITE WNL. OPSITE TAPE OVER POKE. WHITE WRIST BOARD APLIED TO RIGHT WRIST. PT INSTRUCTION GIVEN ON LEAVING WRIST BOARD ON. INSTRUCTED ON SIGNS OF INFECTION. IV REMOVED FROM LEFT FA. PRESSURE DRESSING APPLIED. PT WILL CALL [facility] TO MEET HIM OUTSIDE ER AFTER HE IS DRESSED. CONTINUE POT.
== END 2019-10-23 16:38 | disposition home or self-care (01) | DRG 281 ==
LOC: ER 14:07 → PCU 21:42
PROVIDERS: Internal Medicine Gastroenterology; Nurse Practitioner Acute Care; Physician Assistant; ADMIT Internal Medicine
PROC: 4A023N7 Measurement of Cardiac Sampling and Pressure, Left Heart, Percutaneous Approach (ICD-10-PCS; principal; 2019-10-23)
PROC: B211YZZ Fluoroscopy of Multiple Coronary Arteries using Other Contrast (ICD-10-PCS; 2019-10-23)
DX: I11.0 Hypertensive heart disease with heart failure (principal); I21.4 Non-ST elevation (NSTEMI) myocardial infarction; I48.20 Chronic atrial fibrillation, unspecified; F11.20 Opioid dependence, uncomplicated; I50.23 Acute on chronic systolic (congestive) heart failure; N40.0 Benign prostatic hyperplasia without lower urinary tract symptoms; I95.9 Hypotension, unspecified; I25.10 Atherosclerotic heart disease of native coronary artery without angina pectoris; Z95.5 Presence of coronary angioplasty implant and graft; E78.5 Hyperlipidemia, unspecified; E03.9 Hypothyroidism, unspecified; R13.19 Other dysphagia; G89.4 Chronic pain syndrome; I35.0 Nonrheumatic aortic (valve) stenosis; G56.03 Carpal tunnel syndrome, bilateral upper limbs; E11.9 Type 2 diabetes mellitus without complications; M51.36 Other intervertebral disc degeneration, lumbar region
CPT/HCPCS: 36415; 71046; 76937; 80048; 80053; 80162; 82533; 83735; 83880; 84484; 85014; 85018; 85025; 85610; 85730; 93005; 93010; 93454; 96374; 99152; 99153; 99285-25; A9270; A9270-GY; C1769; C1894; C8929; J1644; J1940; J2250; J3010; J7030; Q9957; Q9967

== ENCOUNTER → 2019-11-04 | Outpatient (CLI) | payer OTHER ==
[~2019-11-04] MED LIST changes: +ATOR80 PO; +Aspir 8181 MG PO; +DIGOX125 MC1 PO; +ECONAZOLE NITRA30 GM; +ELIQUIS5 M2 PO; +ELIQUIS5 MG PO; +GABA300 PO; +METO25 PO; +POTA20LUD PO; +TORSE20 PO
[2019-11-04 12:38] LABS: BASOPHILS ABSOLUTE AUTO 0.04 K/mm3 (0.00-0.23); BASOPHILS PERCENT AUTO 0 % (0-2); EOSINOPHILS ABSOLUTE AUTO 0.05 K/mm3 (0.00-0.68); EOSINOPHILS PERCENT AUTO 1 % (0-6); Hematocrit 40.6 % (37.0-53.0); Hemoglobin 13.9 g/dL (13.5-17.5); IMMATURE GRAN ABSOLUTE AUTO 0.04 K/mm3 (0.00-0.10); IMMATURE GRAN PERCENT AUTO 0 % (0-1); LYMPHOCYTES ABSOLUTE AUTO 1.19 K/mm3 (0.84-5.20); LYMPHOCYTES PERCENT AUTO 11 % (21-46); MONOCYTES ABSOLUTE AUTO 0.77 K/mm3 (0.16-1.47); MONOCYTES PERCENT AUTO 7 % (4-13); Mean Corpuscular HGB 33.3 pg (26.0-34.0); Mean Corpuscular HGB Conc 34.2 g/dL (31.5-36.5); Mean Corpuscular Volume 97 fL (80-100); Mean Platelet Volume 10.5 fL (9.1-12.4); NEUTROPHILS ABSOLUTE AUTO 8.34 K/mm3 (1.96-9.15); NEUTROPHILS PERCENT AUTO 80 % (41-73); Platelet Count 174 K/mm3 (150-400); RDW Coefficient Variation 13.8 % (11.7-14.2); Red Blood Cell Count 4.17 M/mm3 (4.30-5.90); White Blood Cell Count 10.43 K/mm3 (4.00-11.30)
[2019-11-04 12:49] LABS: Albumin/Globulin Ratio 1.2 (0.8-1.8); Bun/Creatinine Ratio 20.6 (12.0-20.0); Calcium, Blood 9.4 mg/dL (8.5-10.1); Creatinine, Blood 1.31 mg/dL (0.60-1.20); Globulin, Blood 3.4 g/dL (2.2-4.0); Potassium, Blood 4.8 mmol/L (3.5-5.5); Total Protein, Blood 7.4 g/dL (6.4-8.2)
== END | disposition home or self-care (01) ==
LOC: LAB SHORT 12:33 → OLS 12:33
PROVIDERS: General Practice
DX: I50.9 Heart failure, unspecified (principal)
CPT/HCPCS: 80053; 83880; 85025; 87070; 87075; 87077; 87147; 87186; 87205

== ENCOUNTER 2019-11-05 16:44 | Emergency (ER) | payer OTHER ==
[~2019-11-05] VITALS: Ht 172.7 cm; Wt 73.0 kg
[~2019-11-05 16:44] MED LIST changes: -ECONAZOLE NITRA30 GM; -ELIQUIS5 M2 PO
[2019-11-05] MEDS ORDERED: CODACE30 PO (16:56)
[2019-11-05] MEDS ORDERED: LANOXIN125 MCG PO (16:57)
[2019-11-05] MEDS ORDERED: ATOR20 PO (16:57)
[2019-11-05] MEDS ORDERED: ELIQUIS5 M2 PO (16:59)
[2019-11-05] MEDS ORDERED: FURO40 PO (16:59)
[2019-11-05] MEDS ORDERED: ECONAZOLE NITRA30 GM (16:59)
[2019-11-05] MEDS ORDERED: METO25ER PO (17:00)
[2019-11-05] MEDS ORDERED: GABA300 PO (17:00)
[2019-11-05] MEDS ORDERED: TAMS.4ER PO (17:01)
[2019-11-05] MEDS ORDERED: POTA20LUD PO (17:01)
[2019-11-05] MEDS ORDERED: TRAM50 PO (17:02)
[2019-11-05 18:11] LABS: PCO2 Venous 21.7 mmHg (38-42); PO2 Venous 125 mmHg (38-42); pH Blood Venous 7.51 (7.34-7.37)
[2019-11-05 18:12] LABS: Base Excess Venous -5.8 mmol/L; Bicarbonate Venous 21.7 mmol/L (24.0-30.0)
== END 2019-11-05 20:45 | disposition short-term general hospital (02) ==
LOC: ER 16:44
PROVIDERS: Emergency Medicine
DX: I11.0 Hypertensive heart disease with heart failure (principal); I50.9 Heart failure, unspecified; J44.9 Chronic obstructive pulmonary disease, unspecified; I35.0 Nonrheumatic aortic (valve) stenosis; I48.91 Unspecified atrial fibrillation; R09.02 Hypoxemia; R60.0 Localized edema; I25.10 Atherosclerotic heart disease of native coronary artery without angina pectoris; E03.9 Hypothyroidism, unspecified; E11.9 Type 2 diabetes mellitus without complications; E78.5 Hyperlipidemia, unspecified; Z88.5 Allergy status to narcotic agent; Z88.8 Allergy status to other drugs, medicaments and biological substances; Z79.899 Other long term (current) drug therapy; Z87.891 Personal history of nicotine dependence; Z79.01 Long term (current) use of anticoagulants
CPT/HCPCS: 71045; 82803; 83880; 84484; 93005; 93010; 96374; 99285-25; J1940

== ENCOUNTER → 2019-11-05 | Outpatient (CLI) | payer OTHER ==
[2019-11-05 15:52] LABS: BASOPHILS ABSOLUTE AUTO 0.03 K/mm3 (0.00-0.23); BASOPHILS PERCENT AUTO 0 % (0-2); EOSINOPHILS ABSOLUTE AUTO 0.03 K/mm3 (0.00-0.68); EOSINOPHILS PERCENT AUTO 0 % (0-6); Hematocrit 39.7 % (37.0-53.0); Hemoglobin 13.7 g/dL (13.5-17.5); IMMATURE GRAN ABSOLUTE AUTO 0.06 K/mm3 (0.00-0.10); IMMATURE GRAN PERCENT AUTO 1 % (0-1); LYMPHOCYTES ABSOLUTE AUTO 1.31 K/mm3 (0.84-5.20); LYMPHOCYTES PERCENT AUTO 11 % (21-46); MONOCYTES ABSOLUTE AUTO 0.94 K/mm3 (0.16-1.47); MONOCYTES PERCENT AUTO 8 % (4-13); Mean Corpuscular HGB 33.3 pg (26.0-34.0); Mean Corpuscular HGB Conc 34.5 g/dL (31.5-36.5); Mean Corpuscular Volume 96 fL (80-100); Mean Platelet Volume 10.2 fL (9.1-12.4); NEUTROPHILS ABSOLUTE AUTO 9.34 K/mm3 (1.96-9.15); NEUTROPHILS PERCENT AUTO 80 % (41-73); Platelet Count 182 K/mm3 (150-400); RDW Coefficient Variation 13.7 % (11.7-14.2); RDW Standard Deviation 48.5 fL (35.1-46.3); Red Blood Cell Count 4.12 M/mm3 (4.30-5.90); White Blood Cell Count 11.71 K/mm3 (4.00-11.30)
[2019-11-05 16:15] LABS: Albumin/Globulin Ratio 1.2 (0.8-1.8); Bilirubin, Total 2.1 mg/dL (0.1-1.0); Bun/Creatinine Ratio 28.3 (12.0-20.0); Calcium, Blood 9.4 mg/dL (8.5-10.1); Creatinine, Blood 1.2 mg/dL (0.60-1.20); Free Thyroxine 1.29 ng/dL (0.70-1.60); Globulin, Blood 3.3 g/dL (2.2-4.0); Potassium, Blood 4.9 mmol/L (3.5-5.5); Thyroid Stimulating Hormone 8.405 uIU/mL (0.360-4.800); Total Protein, Blood 7.3 g/dL (6.4-8.2); Troponin I 0.301 ng/mL (0.000-0.040)
== END ==
LOC: LAB SHORT 15:45 → LAB EV 15:45
PROVIDERS: General Practice
DX: R06.02 Shortness of breath (principal); R53.81 Other malaise
CPT/HCPCS: 80053; 82550; 83880; 84439; 84443; 84484; 85025; 85379

== ENCOUNTER 2019-11-21 18:04 | Emergency (ER) | payer OTHER ==
[~2019-11-21] VITALS: Ht 188 cm; Wt 83.9 kg
[~2019-11-21 18:04] MED LIST changes: +ECONAZOLE NITRA30 GM; +ELIQUIS5 M2 PO
== END 2019-11-21 20:44 ==
LOC: ER 18:04
DX: I46.9 Cardiac arrest, cause unspecified (principal); I25.10 Atherosclerotic heart disease of native coronary artery without angina pectoris; I11.0 Hypertensive heart disease with heart failure; I50.9 Heart failure, unspecified; I48.91 Unspecified atrial fibrillation; E03.9 Hypothyroidism, unspecified; J44.9 Chronic obstructive pulmonary disease, unspecified; E11.9 Type 2 diabetes mellitus without complications; E78.5 Hyperlipidemia, unspecified; Z88.5 Allergy status to narcotic agent; Z88.8 Allergy status to other drugs, medicaments and biological substances; Z79.899 Other long term (current) drug therapy
CPT/HCPCS: 99284